=== PATIENT | male | born 1945 | race Caucasian/White ===

== ENCOUNTER 2017-09-19 18:58 | Emergency (ER) | payer MEDICARE, BC ==
[2017-09-19] MEDS ORDERED: Sodium Chloride 0.9% 10 ML Syringe FLUSH PRN (19:13)
[2017-09-19 19:24] LABS: CHLORIDE,CL 102 mmol/L (98-109); SODIUM,NA 139 mmol/L (138-146)
--- NOTE | 2017-09-19 20:07 | EDM.PDOC ---
ED HPI GENERAL MEDICAL PROBLEM - General Chief Complaint: Neuro Symptoms/Deficits Time Seen by Provider: 09/19/17 18:58 Source of Information: Reports: Family History Limitations: Reports: No Limitations - History of Present Illness INITIAL COMMENTS - FREE TEXT/NARRATIVE: Pt. presents to ER with dysarthria, expressive aphasia, and profound R sided weakness. Pt. has a history of CVA in 2016. 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 He also has some continued R sided weakness and has been rehabbing well. states that she went to work at approx. 0730 this AM and he was well at that time. She states that when she came home, she noted severe R sided weakness /neglect. Apperently he was able to bear weight on his LLE, but had not purposeful movement of the R leg whatsoever. In reviewing the pts. cell phone, he had called a friend at approx. 10:30 this afternoon. The friend was contacted and he stated that their talk was brief, and that he speech was "normal for him"; stating that he was having his usual expressive aphasia but not the profound dysarthria and near complete aphasia we see this evening. Pt. does have some strength in his R extremities, but is unable to follow commands. He is unable to provide any history of ROS, and will not nod or shake his head to the affirmative or negative when asked about symptoms. - Related Data Allergies Allergy/AdvReac Type Severity Reaction Status Date / Time Unable to Assess Allergy Unverified 09/19/17 19:13 ED ROS GENERAL - Review of Systems Review Of Systems: Unable To Obtain (obtained from .) Constitutional: Reports: No Symptoms HEENT: Reports: No Symptoms Respiratory: Denies: Shortness of Breath GI/Abdominal: Reports: Hematochezia, Melena, Vomiting : Reports: No Symptoms Neurological: Reports: Seizure (less than 2 min seizure prior to departure), Trouble Speaking, Difficulty Walking, Change in Speech, Gait Disturbance ED EXAM, GENERAL - Physical Exam Exam: See Below Exam Limited By: No Limitations General Appearance: Alert, WD/WN, No Apparent Distress Eye Exam: Bilateral Eye: EOMI, Normal Fundi, Normal Inspection, PERRL Ears: Normal External Exam, Normal Canal, Hearing Grossly Normal, Normal TMs Ear Exam: Bilateral Ear: Auricle Normal, Canal Normal, TM normal Nose: Normal Inspection, Normal Mucosa, No Blood Throat/Mouth: Normal Inspection, Normal Lips, Normal Teeth, Normal Gums, Normal Oropharynx, Normal Voice, No Airway Compromise Head: Atraumatic, Normocephalic Neck: Normal Inspection, Supple, Non-Tender, Full Range of Motion Respiratory/Chest: No Respiratory Distress, Lungs Clear, Normal Breath Sounds, No Accessory Muscle Use, Chest Non-Tender Cardiovascular: Normal Peripheral Pulses, No Edema, No Gallop, No JVD, Irregularly Irregular Peripheral Pulses: 4+: Radial (L), Radial (R) GI/Abdominal: Normal Bowel Sounds, Soft, Non-Tender, No Organomegaly, No Distention, No Abnormal Bruit, No Mass (Male) Exam: Deferred Rectal (Males) Exam: Deferred Back Exam: Normal Inspection, Full Range of Motion, NT Extremities: Normal Inspection, Normal Range of Motion, Non-Tender, Normal Capillary Refill, No Pedal Edema Neurological: Confused, Slow to Respond, Abnormal Gait, Abnormal Reflexes, Sensory/Motor Deficit Psychiatric: Normal Affect, Normal Mood Skin Exam: Warm, Dry, Intact, Normal Color, No Rash Lymphatic: No Adenopathy EKG INTERPRETATION EKG Date: 09/19/17 Rhythm: A-Fib Course - Orders/Labs/Meds Orders: Active Orders 24 hr Category Date Time Status EKG Documentation Completion [RC] STAT Care 09/19/17 19:14 Active Head wo Cont [CT] Routine Exams 09/19/17 19:06 Taken Sodium Chloride 0.9% [Saline Flush] Med 09/19/17 19:13 Active 10 ml FLUSH ASDIRECTED PRN Peripheral IV Insertion Adult [OM.PC] Routine Oth 09/19/17 19:14 Ordered Medication Orders Sodium Chloride (Saline Flush) 10 ml FLUSH ASDIRECTED PRN PRN Reason: Keep Vein Open Labs: Laboratory Tests 09/19/17 09/19/17 09/19/17 Range/Units 19:05 19:10 19:10 WBC 10.4 H (4.0-10.0) x10^3/uL RBC 4.88 (4.5-6.0) x10^6/uL Hgb 14.4 (14.0-18.0) g/dL Hct 44.4 (40.0-52.0) % MCV 91.0 (78.0-93.0) fL MCH 29.5 (26.0-32.0) pg MCHC 32.4 (32.0-36.0) g/dL RDW Coeff of Stacy 14.7 (10.0-15.0) % Plt Count 214 (130-400) x10^3/uL Neut % (Auto) 75.8 (50.0-80.0) % Lymph % (Auto) 15.0 L (25.0-50.0) % Mora % (Auto) 6.6 (2.0-11.0) % Eos % (Auto) 2.4 (0.0-4.0) % Baso % (Auto) 0.2 (0.2-1.2) % PT 10.5 (9.8-11.8) SEC INR 1.0 L (2.0-3.5) Sodium (138-146) mmol/L Potassium (3.5-4.9) mmol/L Chloride (98-109) mmol/L Carbon Dioxide (24-29) mmol/L Anion Gap (10-20) mmol/L BUN (8-26) mg/dL Creatinine (0.6-1.3) mg/dL Est Cr Clr Drug Dosing Estimated GFR (MDRD) Glucose (70-105) mg/dL POC Glucose 195 H (74-106) mg/dL Calcium (8.5-10.1) mg/dL Corrected Calcium (8.5-10.1) mg/dL Total Bilirubin (0.2-1.0) mg/dL AST (15-37) U/L ALT (16-63) U/L Alkaline Phosphatase (46-116) U/L POC Troponin I (0.00-0.08) ng/mL Troponin I C-Reactive Protein (<=0.9) mg/dL Total Protein (6.4-8.2) g/dL Albumin (3.4-5.0) g/dL Globulin Albumin/Globulin Ratio Ethyl Alcohol (0-3) mg/dL 09/19/17 09/19/17 Range/Units 19:10 19:19 WBC (4.0-10.0) x10^3/uL RBC (4.5-6.0) x10^6/uL Hgb (14.0-18.0) g/dL Hct (40.0-52.0) % MCV (78.0-93.0) fL MCH (26.0-32.0) pg MCHC (32.0-36.0) g/dL RDW Coeff of Stacy (10.0-15.0) % Plt Count (130-400) x10^3/uL Neut % (Auto) (50.0-80.0) % Lymph % (Auto) (25.0-50.0) % Mora % (Auto) (2.0-11.0) % Eos % (Auto) (0.0-4.0) % Baso % (Auto) (0.2-1.2) % PT (9.8-11.8) SEC INR (2.0-3.5) Sodium 139 (138-146) mmol/L Potassium 3.9 (3.5-4.9) mmol/L Chloride 102 (98-109) mmol/L Carbon Dioxide 26 (24-29) mmol/L Anion Gap 14.9 (10-20) mmol/L BUN 15 (8-26) mg/dL Creatinine 1.0 (0.6-1.3) mg/dL Est Cr Clr Drug Dosing TNP Estimated GFR (MDRD) > 60 Glucose 204 H (70-105) mg/dL POC Glucose (74-106) mg/dL Calcium 8.4 L (8.5-10.1) mg/dL Corrected Calcium 8.64 (8.5-10.1) mg/dL Total Bilirubin 0.5 (0.2-1.0) mg/dL AST 23 (15-37) U/L ALT 39 (16-63) U/L Alkaline Phosphatase 117 H (46-116) U/L POC Troponin I 0.01 (0.00-0.08) ng/mL Troponin I Cancelled C-Reactive Protein 0.7 (<=0.9) mg/dL Total Protein 7.8 (6.4-8.2) g/dL Albumin 3.7 (3.4-5.0) g/dL Globulin 4.1 Albumin/Globulin Ratio 0.90 Ethyl Alcohol < 3 (0-3) mg/dL Meds: Medications Generic Name Dose Route Start Last Admin Trade Name Saray PRN Reason Stop Dose Admin Sodium Chloride 10 ml 09/19/17 19:13 Saline Flush FLUSH ASDIRECTED PRN Keep Vein Open Discontinued Medications Generic Name Dose Route Start Last Admin Trade Name Saray PRN Reason Stop Dose Admin Lorazepam 1 mg 09/19/17 20:08 Ativan IVPUSH 09/19/17 20:09 ONETIME ONE - Radiology Interpretation Free Text/Narrative:: CT brain did not meet acute pathology - Re-Assessments/Exams Free Text/Narrative Re-Assessment/Exam: 09/19/17 20:24 Code green was called. Pt. was brought straight to CT, which was negative for acute pathology. IV access was established. NIH stroke scale was performed. His score was 13, with profound R sided weakness, dysarthria and aphasia noted. Pt. likely has some swallow issues, as he coughs when lying supine. Pt. did experience 90 sec. of full-body seizure activity which resolved spontaneously. He was given 1 mg of Ativan for seizure prophylaxis. Spoke with Dr. Vitale who felt pt. was not a candidate for thromectomy of his last known well was 7:30, but I was able to track his friend down who affirmed he spoke with him at 10:30. Departure - Departure Time of Disposition: 20:22 Disposition: DC/Tfer to Acute Hospital 02 Condition: Critical Clinical Impression: Cerebrovascular accident (CVA) - Discharge Information Referrals: PCP,Unknown [Ordering Only Provider] - Forms: Interfacility Transfer EMTALA, ED Department Discharge - My Orders Last 24 Hours: My Active Orders 09/19/17 19:06 Head wo Cont [CT] Routine 09/19/17 19:13 Sodium Chloride 0.9% [Saline Flush] 10 ml FLUSH ASDIRECTED PRN 09/19/17 19:14 EKG Documentation Completion [RC] STAT Peripheral IV Insertion Adult [OM.PC] Routine - Assessment/Plan Last 24 Hours: My Active Orders 09/19/17 19:06 Head wo Cont [CT] Routine 09/19/17 19:13 Sodium Chloride 0.9% [Saline Flush] 10 ml FLUSH ASDIRECTED PRN 09/19/17 19:14 EKG Documentation Completion [RC] STAT Peripheral IV Insertion Adult [OM.PC] Routine
[2017-09-19] MEDS ORDERED: LORazepam 2 MG/ML SDV IVPUSH ONE (20:08)
== END 2017-09-19 20:15 | disposition short-term general hospital (02) ==
LOC: VM.ED 18:58
DX: I63.9 Cerebral infarction, unspecified (principal); R47.1 Dysarthria and anarthria; R29.713 NIHSS score 13
CPT/HCPCS: 70450; 80053; 82962; 84484; 85025; 85610; 86140; 93005; 93010; 96374; 99285; 99285-GF; G0480; J2060

== ENCOUNTER 2020-12-10 20:05 | Emergency (ER) | payer MEDICARE, BC ==
[2020-12-10 20:58] LABS: PTT,PARTIAL THROMBOPLSTIN TIME 27.4 SEC (25.6-32.8)
[2020-12-10 21:02] LABS: ANION GAP 13.6 mmol/L (5-15); CHLORIDE,CL 105 mmol/L (98-107); SODIUM,NA 140 mmol/L (136-145)
--- NOTE | 2020-12-10 21:13 | EDM.PDOC ---
ED HPI GENERAL MEDICAL PROBLEM - General Chief Complaint: General Stated Complaint: Scrotum Swelling Time Seen by Provider: 12/10/20 20:10 Source of Information: Reports: Patient History Limitations: Reports: No Limitations - History of Present Illness INITIAL COMMENTS - FREE TEXT/NARRATIVE: Pt. presents to ER with complaints of ecchymosis, edema, and discomfort to R upper thigh/inguinal area, abdomen, and scrotum edema. Pt. states that he underwent an angiogram on Sunday performed by Dr. Morataya. Pt. states that he has noticed the above symptoms for approx. the past 2 days. Pt. is quite a poor historian, so onset is really unclear. The patient's has not looked at the area until tonight. Pt. is currently on Eliquis for cerebrovascular disease (history of L [employer] and L MCA stroke) undewent TPA and mechanical thombectomy in 2018. He denies any chest pain, shortness of breath, lightheadedness, fever, chills, palpitations. He does complain of discomfort with manipulation/palpation of affected area. Pt. actually resides in [place], but they have a cabin here on [facility]. They came for the weekend. Pt. denies any trauma to the area. Denies any excessive lifting/activity. Onset: Today Onset Date: 12/10/20 Location: Reports: Lower Extremity, Right - Related Data Allergies Allergy/AdvReac Type Severity Reaction Status Date / Time No Known Allergies Allergy Verified 09/19/17 20:35 Home Meds: Home Meds Apixaban [Eliquis] 09/19/17 [History] ED ROS GENERAL - Review of Systems Review Of Systems: See Below Constitutional: Reports: No Symptoms HEENT: Reports: No Symptoms Respiratory: Reports: No Symptoms Cardiovascular: Reports: No Symptoms Endocrine: Reports: No Symptoms GI/Abdominal: Reports: No Symptoms : Reports: No Symptoms Musculoskeletal: Reports: No Symptoms Skin: Reports: Other (See HPI) Neurological: Reports: No Symptoms Psychiatric: Reports: No Symptoms Hematologic/Lymphatic: Reports: No Symptoms, Easy Bruising Immunologic: Reports: No Symptoms ED EXAM, GENERAL - Physical Exam Exam: See Below Exam Limited By: No Limitations General Appearance: Alert, WD/WN, No Apparent Distress Neck: Normal Inspection, Supple, Non-Tender, Full Range of Motion Respiratory/Chest: No Respiratory Distress, Lungs Clear, Normal Breath Sounds, No Accessory Muscle Use, Chest Non-Tender Cardiovascular: Normal Peripheral Pulses, Regular Rate, Rhythm, No JVD GI/Abdominal: Soft, Other (Ecchymosis/firmness to [place]. His abdominal exam is otherwise negative.) (Male) Exam: Scrotal Swelling, Scrotum Tenderness (L), Scrotum Tenderness (R), Suprapubic Fullness Rectal (Males) Exam: Deferred Back Exam: Normal Inspection Extremities: Limited Range of Motion (Discomfort with flexion of R hip.), Other (Ecchymosis/edema to R inguinal area. CMS intact in distal portion of extremity. Pulse points marked from previous angiogram on Tues. Dorsalis pedis and posterior tibialis pulses are palpable in RLE.) Course - Orders/Labs/Meds Orders: Active Orders 24 hr Category Date Time Status COMPREHENSIVE METABOLIC PN,CMP [CHEM] Stat Lab 12/10/20 20:35 Received Labs: Laboratory Tests 12/10/20 12/10/20 Range/Units 20:35 20:35 WBC 11.2 H (4.0-10.0) x10^3/uL RBC 3.16 L (4.5-6.0) x10^6/uL Hgb 9.2 L D (14.0-18.0) g/dL Hct 29.2 L (40.0-52.0) % MCV 92.4 (78.0-93.0) fL MCH 29.1 (26.0-32.0) pg MCHC 31.5 L (32.0-36.0) g/dL RDW Coeff of Stacy 15.1 H (10.0-15.0) % Plt Count 223 (130-400) x10^3/uL Neut % (Auto) 78.4 (50.0-80.0) % Lymph % (Auto) 11.2 L (25.0-50.0) % [place] % (Auto) 8.0 (2.0-11.0) % Eos % (Auto) 2.0 (0.0-4.0) % Baso % (Auto) 0.4 (0.2-1.2) % PT 11.5 (9.9-12.5) SEC INR 1.0 L (2.0-3.5) APTT 27.4 (25.6-32.8) SEC Departure - Departure Time of Disposition: 21:32 Disposition: DC/Tfer to Acute Hospital 02 Clinical Impression: Post-op bleeding - Discharge Information Referrals: PCP,Not In Area [Primary Care Provider] - - Problem List Review Problem List Initiated/Reviewed/Updated: Yes - My Orders Last 24 Hours: My Active Orders 12/10/20 20:35 COMPREHENSIVE METABOLIC PN,CMP [CHEM] Stat - Assessment/Plan Last 24 Hours: My Active Orders 12/10/20 20:35 COMPREHENSIVE METABOLIC PN,CMP [CHEM] Stat Plan: [facility] was contacted. Pt. will be transferred via ground ambulance. Dr. Tariq accepts patient in transfer. Discussed placement of pressure to the area. We will refrain from doing this until he undergoes ultrasound. All questions were answered.
== END 2020-12-10 22:05 | disposition short-term general hospital (02) ==
LOC: VM.ED 20:05
DX: I97.618 Postprocedural hemorrhage of a circulatory system organ or structure following other circulatory system procedure (principal); S30.1XXA Contusion of abdominal wall, initial encounter; R60.0 Localized edema; Z79.01 Long term (current) use of anticoagulants; X58.XXXA Exposure to other specified factors, initial encounter
CPT/HCPCS: 36415; 80053; 85025; 85610; 85730; 99283; 99284

== ENCOUNTER 2025-03-26 15:53 | Inpatient (IN) | payer MEDICARE, BC ==
[2025-03-26 16:28] LABS: BASOPHILS ABSOLUTE AUTO 0.1 x10^3/uL (0.0-0.2); BASOPHILS PERCENT AUTO 0.5 % (0.2-1.2); EOSINOPHILS ABSOLUTE AUTO 0.3 x10^3/uL (0.0-0.5); EOSINOPHILS PERCENT AUTO 2.0 % (0.0-4.0); IMMATURE GRAN ABSOLUTE AUTO 0.05 x10^3/uL (0.00-0.07); IMMATURE GRAN PERCENT AUTO 0.40 % (0.00-0.43); LYMPHOCYTES ABSOLUTE AUTO 1.0 x10^3/uL (1.0-4.8); LYMPHOCYTES PERCENT AUTO 7.5 % (25.0-50.0); MONOCYTES ABSOLUTE AUTO 1.0 x10^3/uL (0.0-0.8); MONOCYTES PERCENT AUTO 7.5 % (2.0-11.0); NEUTROPHILS ABSOLUTE AUTO 10.9 x10^3/uL (1.8-7.7); NEUTROPHILS PERCENT AUTO 82.1 % (50.0-80.0); PLATELET COUNT,PLT 289 x10^3/uL (130-400); RED BLOOD CELL COUNT 3.65 x10^6/uL (4.5-6.0); WHITE BLOOD CELL COUNT,WBC 13.3 x10^3/uL (4.0-10.0)
[2025-03-26 16:49] LABS: A/G RATIO 0.78; ALANINE AMINOTRANSFERASE,ALT 21 U/L (16-63); ASPARTATE AMNIOTRANSFERASE,AST 14 U/L (15-37); BILIRUBIN TOTAL 0.6 mg/dL (0.2-1.0); BLOOD UREA NITROGEN,BUN 26 mg/dL (7-18); CARBON DIOXIDE,CO2 25 mmol/L (21-32); CHLORIDE,CL 104 mmol/L (98-107); CREATININE 1.8 mg/dL (0.70-1.30); ESTIMATED GFR 38 mL/min (>=60); GLUCOSE RANDOM 164 mg/dL (70-99); POTASSIUM,K 5.2 mmol/L (3.5-5.1); PROTEIN TOTAL,TP 6.6 g/dL (6.4-8.2); SODIUM,NA 137 mmol/L (136-145)
[2025-03-26] MEDS: Furosemide 40 MG/4 ML VIAL IV ONE (17:42)
[2025-03-26 18:29] LABS: APPEARANCE,URINE TURBID (CLEAR); GLUCOSE,URINE 500 mg/dL (NEGATIVE); OCCULT BLOOD,URINE MODERATE (NEGATIVE)
[2025-03-26 18:40] LABS: SQUAMOUS EPITHELIAL CELLS,UR NOT SEEN /HPF (NOT SEEN); WBC CASTS,URINE FEW /HPF (NOT SEEN)
[2025-03-26] MEDS ORDERED: 50% Dextrose in Water 50 ML Syringe IVPUSH PRN (18:41)
[2025-03-26] MEDS ORDERED: FLUTICASONE PROPIONATE NS PRN (18:46)
[2025-03-26] MEDS ORDERED: Fluticasone Propionate Nasal Spray 9.9 ML BOTTLE NAS PRN (21:21)
[2025-03-26] MEDS: Nystatin Crm 30 GM Tube TOP SCH (23:19)
[2025-03-27] MEDS ORDERED: 50% Dextrose in Water 50 ML Syringe IVPUSH PRN (06:31)
[2025-03-27 06:51] LABS: BASOPHILS ABSOLUTE AUTO 0.0 x10^3/uL (0.0-0.2); BASOPHILS PERCENT AUTO 0.3 % (0.2-1.2); EOSINOPHILS ABSOLUTE AUTO 0.2 x10^3/uL (0.0-0.5); EOSINOPHILS PERCENT AUTO 1.3 % (0.0-4.0); IMMATURE GRAN ABSOLUTE AUTO 0.04 x10^3/uL (0.00-0.07); IMMATURE GRAN PERCENT AUTO 0.40 % (0.00-0.43); LYMPHOCYTES ABSOLUTE AUTO 0.8 x10^3/uL (1.0-4.8); LYMPHOCYTES PERCENT AUTO 7.0 % (25.0-50.0); MONOCYTES ABSOLUTE AUTO 0.9 x10^3/uL (0.0-0.8); MONOCYTES PERCENT AUTO 8.1 % (2.0-11.0); NEUTROPHILS ABSOLUTE AUTO 9.3 x10^3/uL (1.8-7.7); NEUTROPHILS PERCENT AUTO 82.9 % (50.0-80.0); PLATELET COUNT,PLT 234 x10^3/uL (130-400); RED BLOOD CELL COUNT 3.39 x10^6/uL (4.5-6.0); WHITE BLOOD CELL COUNT,WBC 11.2 x10^3/uL (4.0-10.0)
[2025-03-27 07:03] LABS: BLOOD UREA NITROGEN,BUN 26.0 mg/dL (7-18); CARBON DIOXIDE,CO2 28.0 mmol/L (21-32); CHLORIDE,CL 103.0 mmol/L (98-107); CREATININE 2.0 mg/dL (0.70-1.30); EST CRCL DRUG DOSING (CG) 28.92 mL/min; GLUCOSE RANDOM 166.0 mg/dL (70-99); POTASSIUM,K 5.2 mmol/L (3.5-5.1); SODIUM,NA 137.0 mmol/L (136-145)
[2025-03-27 07:08] LABS: ESTIMATED GFR 34.0 mL/min (>=60)
[2025-03-27] MEDS: Cyanocobalamin (Vitamin B12) 250 MCG Tab PO SCH (08:26)
[2025-03-27] MEDS: Cholecalciferol (Vitamin D3) 25 MCG Tab PO SCH (08:27)
[2025-03-27] MEDS: Furosemide 40 MG/4 ML VIAL IV SCH (08:29)
[2025-03-27] MEDS: Insulin Glarg,Human.Rec.Analog 100 Unit/ML 10 ML Vial SUBCUT SCH (08:43)
[2025-03-27] MEDS ORDERED: CHOLECALCIFEROL 50 MCG PO SCH (09:00)
[2025-03-27] MEDS: Sodium Chloride 0.9% 10 ML Syringe FLUSH PRN (21:17)
[2025-03-28] MEDS: Non-Formulary Medication 1 Each (Metoprolol Tartrate 100 MG Tablet) PO SCH (03:54)
[2025-03-28 08:34] LABS: BLOOD UREA NITROGEN,BUN 28.0 mg/dL (7-18); CARBON DIOXIDE,CO2 27.0 mmol/L (21-32); CHLORIDE,CL 104.0 mmol/L (98-107); CREATININE 2.1 mg/dL (0.70-1.30); EST CRCL DRUG DOSING (CG) 27.54 mL/min; GLUCOSE RANDOM 136.0 mg/dL (70-99); POTASSIUM,K 4.5 mmol/L (3.5-5.1); SODIUM,NA 138.0 mmol/L (136-145)
[2025-03-28 08:39] LABS: BASOPHILS ABSOLUTE AUTO 0.0 x10^3/uL (0.0-0.2); BASOPHILS PERCENT AUTO 0.4 % (0.2-1.2); EOSINOPHILS ABSOLUTE AUTO 0.3 x10^3/uL (0.0-0.5); EOSINOPHILS PERCENT AUTO 2.4 % (0.0-4.0); ESTIMATED GFR 32.0 mL/min (>=60); IMMATURE GRAN ABSOLUTE AUTO 0.04 x10^3/uL (0.00-0.07); IMMATURE GRAN PERCENT AUTO 0.40 % (0.00-0.43); LYMPHOCYTES ABSOLUTE AUTO 0.9 x10^3/uL (1.0-4.8); LYMPHOCYTES PERCENT AUTO 8.4 % (25.0-50.0); MONOCYTES ABSOLUTE AUTO 0.9 x10^3/uL (0.0-0.8); MONOCYTES PERCENT AUTO 9.1 % (2.0-11.0); NEUTROPHILS ABSOLUTE AUTO 8.2 x10^3/uL (1.8-7.7); NEUTROPHILS PERCENT AUTO 79.3 % (50.0-80.0); PLATELET COUNT,PLT 238 x10^3/uL (130-400); RED BLOOD CELL COUNT 3.26 x10^6/uL (4.5-6.0); WHITE BLOOD CELL COUNT,WBC 10.4 x10^3/uL (4.0-10.0)
[2025-03-29 08:14] LABS: BLOOD UREA NITROGEN,BUN 26.0 mg/dL (7-18); CARBON DIOXIDE,CO2 28.0 mmol/L (21-32); CHLORIDE,CL 104.0 mmol/L (98-107); CREATININE 1.9 mg/dL (0.70-1.30); EST CRCL DRUG DOSING (CG) 30.44 mL/min; GLUCOSE RANDOM 162.0 mg/dL (70-99); POTASSIUM,K 4.4 mmol/L (3.5-5.1); SODIUM,NA 139.0 mmol/L (136-145)
[2025-03-29 08:18] LABS: ESTIMATED GFR 36.0 mL/min (>=60)
[2025-03-29 11:07] LABS: TSH RECEPTOR AB <1.10 IU/L (<=1.75)
[2025-03-30 07:13] LABS: BASOPHILS ABSOLUTE AUTO 0.0 x10^3/uL (0.0-0.2); BASOPHILS PERCENT AUTO 0.2 % (0.2-1.2); EOSINOPHILS ABSOLUTE AUTO 0.2 x10^3/uL (0.0-0.5); EOSINOPHILS PERCENT AUTO 1.7 % (0.0-4.0); IMMATURE GRAN ABSOLUTE AUTO 0.02 x10^3/uL (0.00-0.07); IMMATURE GRAN PERCENT AUTO 0.20 % (0.00-0.43); LYMPHOCYTES ABSOLUTE AUTO 0.8 x10^3/uL (1.0-4.8); LYMPHOCYTES PERCENT AUTO 6.2 % (25.0-50.0); MONOCYTES ABSOLUTE AUTO 0.9 x10^3/uL (0.0-0.8); MONOCYTES PERCENT AUTO 7.2 % (2.0-11.0); NEUTROPHILS ABSOLUTE AUTO 10.4 x10^3/uL (1.8-7.7); NEUTROPHILS PERCENT AUTO 84.5 % (50.0-80.0); PLATELET COUNT,PLT 237 x10^3/uL (130-400); RED BLOOD CELL COUNT 3.47 x10^6/uL (4.5-6.0); WHITE BLOOD CELL COUNT,WBC 12.4 x10^3/uL (4.0-10.0)
[2025-03-30 07:29] LABS: BLOOD UREA NITROGEN,BUN 22.0 mg/dL (7-18); CARBON DIOXIDE,CO2 29.0 mmol/L (21-32); CHLORIDE,CL 104.0 mmol/L (98-107); CREATININE 1.6 mg/dL (0.70-1.30); EST CRCL DRUG DOSING (CG) 36.15 mL/min; GLUCOSE RANDOM 186.0 mg/dL (70-99); POTASSIUM,K 4.4 mmol/L (3.5-5.1); SODIUM,NA 141.0 mmol/L (136-145)
[2025-03-30 07:32] LABS: ESTIMATED GFR 44.0 mL/min (>=60)
[2025-03-30] MEDS: Furosemide 40 MG/4 ML VIAL IV SCH (09:30)
[2025-03-30] MEDS: Amoxicillin/Clavulanate K 500-125 MG Tab PO SCH ×2 (09:35→17:12)
[2025-03-30] MEDS ORDERED: hydrALAZINE 20 MG/ML SDV IVPUSH PRN (14:04)
[2025-03-30] MEDS: Furosemide 40 MG/4 ML VIAL IV ONE (15:49)
[2025-03-30 16:31] LABS: BASOPHILS ABSOLUTE AUTO 0.0 x10^3/uL (0.0-0.2); BASOPHILS PERCENT AUTO 0.3 % (0.2-1.2); EOSINOPHILS ABSOLUTE AUTO 0.2 x10^3/uL (0.0-0.5); EOSINOPHILS PERCENT AUTO 1.1 % (0.0-4.0); IMMATURE GRAN ABSOLUTE AUTO 0.04 x10^3/uL (0.00-0.07); IMMATURE GRAN PERCENT AUTO 0.30 % (0.00-0.43); LYMPHOCYTES ABSOLUTE AUTO 0.7 x10^3/uL (1.0-4.8); LYMPHOCYTES PERCENT AUTO 4.9 % (25.0-50.0); MONOCYTES ABSOLUTE AUTO 0.9 x10^3/uL (0.0-0.8); MONOCYTES PERCENT AUTO 6.5 % (2.0-11.0); NEUTROPHILS ABSOLUTE AUTO 12.0 x10^3/uL (1.8-7.7); NEUTROPHILS PERCENT AUTO 86.9 % (50.0-80.0); PLATELET COUNT,PLT 252 x10^3/uL (130-400); RED BLOOD CELL COUNT 3.67 x10^6/uL (4.5-6.0); WHITE BLOOD CELL COUNT,WBC 13.8 x10^3/uL (4.0-10.0)
[2025-03-30 16:38] LABS: HCO3 VENOUS,POC 32 mmol/L (22-29); O2 SATURATION VENOUS,POC 61 %; PCO2 VENOUS,POC 63 mmHg (41-51); PH VENOUS,POC 7.32 pH (7.32-7.43); PO2 VENOUS,POC 36 mmHg
[2025-03-30 17:00] LABS: A/G RATIO 0.67; ALANINE AMINOTRANSFERASE,ALT 26.0 U/L (16-63); ASPARTATE AMNIOTRANSFERASE,AST 20.0 U/L (15-37); BILIRUBIN TOTAL 0.8 mg/dL (0.2-1.0); BLOOD UREA NITROGEN,BUN 21.0 mg/dL (7-18); CARBON DIOXIDE,CO2 33.0 mmol/L (21-32); CHLORIDE,CL 101.0 mmol/L (98-107); CREATININE 1.6 mg/dL (0.70-1.30); EST CRCL DRUG DOSING (CG) 36.15 mL/min; GLUCOSE RANDOM 192.0 mg/dL (70-99); POTASSIUM,K 4.0 mmol/L (3.5-5.1); PROTEIN TOTAL,TP 7.5 g/dL (6.4-8.2); SODIUM,NA 141.0 mmol/L (136-145)
[2025-03-30 17:01] LABS: ESTIMATED GFR 44.0 mL/min (>=60)
[2025-03-31 06:47] LABS: BASOPHILS ABSOLUTE AUTO 0.0 x10^3/uL (0.0-0.2); BASOPHILS PERCENT AUTO 0.4 % (0.2-1.2); EOSINOPHILS ABSOLUTE AUTO 0.3 x10^3/uL (0.0-0.5); EOSINOPHILS PERCENT AUTO 3.0 % (0.0-4.0); IMMATURE GRAN ABSOLUTE AUTO 0.02 x10^3/uL (0.00-0.07); IMMATURE GRAN PERCENT AUTO 0.20 % (0.00-0.43); LYMPHOCYTES ABSOLUTE AUTO 0.8 x10^3/uL (1.0-4.8); LYMPHOCYTES PERCENT AUTO 6.9 % (25.0-50.0); MONOCYTES ABSOLUTE AUTO 1.0 x10^3/uL (0.0-0.8); MONOCYTES PERCENT AUTO 9.1 % (2.0-11.0); NEUTROPHILS ABSOLUTE AUTO 8.7 x10^3/uL (1.8-7.7); NEUTROPHILS PERCENT AUTO 80.4 % (50.0-80.0); PLATELET COUNT,PLT 213 x10^3/uL (130-400); RED BLOOD CELL COUNT 3.51 x10^6/uL (4.5-6.0); WHITE BLOOD CELL COUNT,WBC 10.8 x10^3/uL (4.0-10.0)
[2025-03-31 07:09] LABS: A/G RATIO 0.67; ALANINE AMINOTRANSFERASE,ALT 23.0 U/L (16-63); ASPARTATE AMNIOTRANSFERASE,AST 22.0 U/L (15-37); BILIRUBIN TOTAL 0.8 mg/dL (0.2-1.0); BLOOD UREA NITROGEN,BUN 18.0 mg/dL (7-18); CARBON DIOXIDE,CO2 33.0 mmol/L (21-32); CHLORIDE,CL 101.0 mmol/L (98-107); CREATININE 1.3 mg/dL (0.70-1.30); EST CRCL DRUG DOSING (CG) 44.49 mL/min; ESTIMATED GFR 57.0 mL/min (>=60); GLUCOSE RANDOM 149.0 mg/dL (70-99); POTASSIUM,K 3.8 mmol/L (3.5-5.1); PROTEIN TOTAL,TP 6.5 g/dL (6.4-8.2); SODIUM,NA 141.0 mmol/L (136-145)
[2025-04-01 06:57] LABS: BASOPHILS ABSOLUTE AUTO 0.0 x10^3/uL (0.0-0.2); BASOPHILS PERCENT AUTO 0.4 % (0.2-1.2); EOSINOPHILS ABSOLUTE AUTO 0.3 x10^3/uL (0.0-0.5); EOSINOPHILS PERCENT AUTO 3.0 % (0.0-4.0); IMMATURE GRAN ABSOLUTE AUTO 0.03 x10^3/uL (0.00-0.07); IMMATURE GRAN PERCENT AUTO 0.30 % (0.00-0.43); LYMPHOCYTES ABSOLUTE AUTO 0.7 x10^3/uL (1.0-4.8); LYMPHOCYTES PERCENT AUTO 7.7 % (25.0-50.0); MONOCYTES ABSOLUTE AUTO 0.7 x10^3/uL (0.0-0.8); MONOCYTES PERCENT AUTO 8.0 % (2.0-11.0); NEUTROPHILS ABSOLUTE AUTO 7.2 x10^3/uL (1.8-7.7); NEUTROPHILS PERCENT AUTO 80.6 % (50.0-80.0); PLATELET COUNT,PLT 210 x10^3/uL (130-400); RED BLOOD CELL COUNT 3.38 x10^6/uL (4.5-6.0); WHITE BLOOD CELL COUNT,WBC 8.9 x10^3/uL (4.0-10.0)
[2025-04-01 07:13] LABS: BLOOD UREA NITROGEN,BUN 23.0 mg/dL (7-18); CARBON DIOXIDE,CO2 37.0 mmol/L (21-32); CHLORIDE,CL 101.0 mmol/L (98-107); CREATININE 1.4 mg/dL (0.70-1.30); EST CRCL DRUG DOSING (CG) 41.31 mL/min; GLUCOSE RANDOM 154.0 mg/dL (70-99); POTASSIUM,K 3.5 mmol/L (3.5-5.1); SODIUM,NA 143.0 mmol/L (136-145)
[2025-04-01 07:17] LABS: ESTIMATED GFR 52.0 mL/min (>=60)
[2025-04-01] MEDS: Potassium Chloride 10 MEQ Tab.ER PO ONE (10:17)
== END 2025-04-01 12:45 | disposition swing bed (61) | DRG 291 ==
LOC: VM.ED 15:53 → VM.MS 17:55
PROVIDERS: ADMIT Internal Medicine; ATTEND Internal Medicine
DX: I13.0 Hypertensive heart and chronic kidney disease with heart failure and stage 1 through stage 4 chronic kidney disease, or unspecified chronic kidney disease (principal); N18.30 Chronic kidney disease, stage 3 unspecified; I50.9 Heart failure, unspecified; I50.33 Acute on chronic diastolic (congestive) heart failure; J96.01 Acute respiratory failure with hypoxia; E44.0 Moderate protein-calorie malnutrition; I48.91 Unspecified atrial fibrillation; E87.20 Acidosis, unspecified; I69.351 Hemiplegia and hemiparesis following cerebral infarction affecting right dominant side; N18.4 Chronic kidney disease, stage 4 (severe); L03.116 Cellulitis of left lower limb; L97.829 Non-pressure chronic ulcer of other part of left lower leg with unspecified severity; Z68.41 Body mass index [BMI] 40.0-44.9, adult; Z66 Do not resuscitate; E11.22 Type 2 diabetes mellitus with diabetic chronic kidney disease; G47.33 Obstructive sleep apnea (adult) (pediatric); G40.909 Epilepsy, unspecified, not intractable, without status epilepticus; E66.9 Obesity, unspecified; I87.8 Other specified disorders of veins; D63.1 Anemia in chronic kidney disease; E11.51 Type 2 diabetes mellitus with diabetic peripheral angiopathy without gangrene; I48.0 Paroxysmal atrial fibrillation; E78.00 Pure hypercholesterolemia, unspecified; F41.8 Other specified anxiety disorders; K21.9 Gastro-esophageal reflux disease without esophagitis; E87.5 Hyperkalemia; Z99.89 Dependence on other enabling machines and devices; Z87.891 Personal history of nicotine dependence; Z79.01 Long term (current) use of anticoagulants; I69.320 Aphasia following cerebral infarction; Z98.84 Bariatric surgery status; Z87.442 Personal history of urinary calculi; Z98.890 Other specified postprocedural states; Z79.1 Long term (current) use of non-steroidal anti-inflammatories (NSAID); Z79.82 Long term (current) use of aspirin; Z79.899 Other long term (current) drug therapy; Z79.84 Long term (current) use of oral hypoglycemic drugs; Z85.828 Personal history of other malignant neoplasm of skin
CPT/HCPCS: 36415; 71045; 80053; 83520; 83605 ×2; 83880; 84132; 85025; 87040 ×2; 96374; 96375; 99284; 99285; J1938; J2543; 51798; 80048; 81001; 82728; 82803; 82947; 84443; 84484; 87086; 87088; 87147; 87186; 94640; 94660; 94760; 97110-GP; 97116-GP; 97162-GP; 97165-GO; 97530-GP; 97535-GO; 99232-GT; A9270-GY; J1815-GY

== ENCOUNTER 2025-04-01 10:18 | Inpatient (IN) | payer MEDICARE, BC ==
[2025-04-01] MEDS ORDERED: Fluticasone Propionate Nasal Spray 9.9 ML BOTTLE NAS PRN (11:34)
[2025-04-01] MEDS ORDERED: 50% Dextrose in Water 50 ML Syringe IVPUSH PRN (11:34)
[2025-04-01] MEDS: Amoxicillin/Clavulanate K 500-125 MG Tab PO SCH (17:50)
[2025-04-01] MEDS: Nystatin Crm 30 GM Tube TOP SCH (20:23)
[2025-04-02] MEDS: Cyanocobalamin (Vitamin B12) 250 MCG Tab PO SCH (08:22)
[2025-04-02] MEDS: Cholecalciferol (Vitamin D3) 25 MCG Tab PO SCH (08:22)
[2025-04-02] MEDS: Insulin Glarg,Human.Rec.Analog 100 Unit/ML 10 ML Vial SUBCUT SCH (08:25)
[2025-04-03 08:47] LABS: BASOPHILS ABSOLUTE AUTO 0.0 x10^3/uL (0.0-0.2); BASOPHILS PERCENT AUTO 0.5 % (0.2-1.2); EOSINOPHILS ABSOLUTE AUTO 0.2 x10^3/uL (0.0-0.5); EOSINOPHILS PERCENT AUTO 2.0 % (0.0-4.0); IMMATURE GRAN ABSOLUTE AUTO 0.02 x10^3/uL (0.00-0.07); IMMATURE GRAN PERCENT AUTO 0.20 % (0.00-0.43); LYMPHOCYTES ABSOLUTE AUTO 0.4 x10^3/uL (1.0-4.8); LYMPHOCYTES PERCENT AUTO 5.1 % (25.0-50.0); MONOCYTES ABSOLUTE AUTO 0.5 x10^3/uL (0.0-0.8); MONOCYTES PERCENT AUTO 6.7 % (2.0-11.0); NEUTROPHILS ABSOLUTE AUTO 6.9 x10^3/uL (1.8-7.7); NEUTROPHILS PERCENT AUTO 85.5 % (50.0-80.0); RED BLOOD CELL COUNT 3.56 x10^6/uL (4.5-6.0); WHITE BLOOD CELL COUNT,WBC 8.0 x10^3/uL (4.0-10.0)
[2025-04-03 08:57] LABS: BLOOD UREA NITROGEN,BUN 29.0 mg/dL (7-18); CARBON DIOXIDE,CO2 32.0 mmol/L (21-32); CHLORIDE,CL 104.0 mmol/L (98-107); CREATININE 1.7 mg/dL (0.70-1.30); EST CRCL DRUG DOSING (CG) 33.94 mL/min; GLUCOSE RANDOM 365.0 mg/dL (70-99); POTASSIUM,K 4.4 mmol/L (3.5-5.1); SODIUM,NA 145.0 mmol/L (136-145)
[2025-04-03 08:59] LABS: ESTIMATED GFR 41.0 mL/min (>=60)
[2025-04-03 09:00] LABS: PLATELET COUNT,PLT 199 x10^3/uL (130-400)
== END 2025-04-03 13:00 | disposition home health service (06) | DRG 947 ==
LOC: VM.MS 12:48
PROVIDERS: ADMIT Internal Medicine; ATTEND Internal Medicine
DX: R53.1 Weakness (principal); I21.4 Non-ST elevation (NSTEMI) myocardial infarction; I50.33 Acute on chronic diastolic (congestive) heart failure; I13.0 Hypertensive heart and chronic kidney disease with heart failure and stage 1 through stage 4 chronic kidney disease, or unspecified chronic kidney disease; Z66 Do not resuscitate; E11.22 Type 2 diabetes mellitus with diabetic chronic kidney disease; N18.30 Chronic kidney disease, stage 3 unspecified; J44.9 Chronic obstructive pulmonary disease, unspecified; I48.91 Unspecified atrial fibrillation; I35.0 Nonrheumatic aortic (valve) stenosis; M19.90 Unspecified osteoarthritis, unspecified site; E78.5 Hyperlipidemia, unspecified; G47.33 Obstructive sleep apnea (adult) (pediatric); E11.51 Type 2 diabetes mellitus with diabetic peripheral angiopathy without gangrene; F32.A Depression, unspecified; D63.1 Anemia in chronic kidney disease; Z96.652 Presence of left artificial knee joint; Z79.84 Long term (current) use of oral hypoglycemic drugs; Z79.4 Long term (current) use of insulin; Z79.899 Other long term (current) drug therapy; Z98.84 Bariatric surgery status; Z86.73 Personal history of transient ischemic attack (TIA), and cerebral infarction without residual deficits; Z79.01 Long term (current) use of anticoagulants; Z79.82 Long term (current) use of aspirin; Z79.1 Long term (current) use of non-steroidal anti-inflammatories (NSAID); Z91.199 Patient's noncompliance with other medical treatment and regimen due to unspecified reason; Z99.81 Dependence on supplemental oxygen; Z98.890 Other specified postprocedural states
CPT/HCPCS: 36415; 80048; 82947; 85025; 94640; 94760; 97116-GP; 97164-GP; 97535-GO; A9270-GY